=== PATIENT | male | born 1995 | race Caucasian/White ===

== ENCOUNTER 2021-04-27 13:52 | Observation (INO) ==
[2021-04-27 14:54] LABS: ABS Lymphocytes 1.5 10^3/ul (1.0-4.8); ABS Monocytes 0.5 10^3/ul (0-0.8); ABS Neutrophils 4.7 10^3/ul (1.5-7.7); Eosinophil % 0.6 %; Hematocrit 44 % (42-52); Hemoglobin 15.2 g/dL (14.0-18.0); Lymphocyte % 22.8 %; Mean Corpuscular HGB Conc 35 g/dL (31-36); Mean Corpuscular Hemoglobin 32 pg (27-31); Mean Corpuscular Volume 91 fL (80-94); Mean Platelet Volume 9.9 fL (7.4-10.4); Platelet Count 184 10^3/uL (150-450); Red Blood Count 4.81 10^6 /uL (4.18-5.48); Red Cell Distribution Width 13 % (10-15); White Blood Count 6.8 10^3/uL (3.5-10.8)
[2021-04-27 15:17] LABS: Albumin/Globulin Ratio 2.2 (1-3); C Reactive Protein 3.51 mg/L (<8.01); Calcium 9.9 mg/dL (8.6-10.3); EGFR African American 98.7 (>60); EGFR Non-African American 81.6 (>60); Globulin 2.3 g/dL (2-4); Potassium 3.8 mmol/L (3.5-5.0); Total Bilirubin 2.8 mg/dL (0.2-1.0); Total Protein 7.3 g/dL (6.4-8.9)
[2021-04-27] MEDS ORDERED: Iohexol 300 (CONTRAST) 10 ML SDV IV ONE (15:22)
[2021-04-27] MEDS ORDERED: Piperacillin/Tazobac ADVAN 3.375 GM in NS 0.9% 100 ml BAG 100 ML IV ONE (16:53)
[2021-04-27] MEDS ORDERED: Midazolam 2 mg/2 ml VIAL 1 mg/ml 2 ml VIAL (2 mg) ONE (17:56)
[2021-04-27] MEDS ORDERED: Ondansetron 4 mg VIAL 2 MG/ML 2 ml VIAL ONE (17:56)
[2021-04-27] MEDS ORDERED: Succinylcholine 200 mg VIAL 20 mg/ml 10 ml VIAL (200 mg) ONE (17:56)
[2021-04-27] MEDS ORDERED: Dexamethasone IV 4 MG/ML VIAL 1 ml VIAL ONE (17:56)
[2021-04-27] MEDS ORDERED: Lidocaine 2% PF 5 ML VIAL ONE (17:56)
[2021-04-27] MEDS ORDERED: Rocuronium 50 mg VIAL 10 mg/ml 5 ml VIAL (50 mg) ONE (17:56)
[2021-04-27] MEDS ORDERED: Propofol 10 MG/ML 20 ML BTL ONE (17:56)
[2021-04-27] MEDS ORDERED: fentaNYL 250 mcg/5 ml 50 MCG/ML 5 ml VIAL (250 MCG) ONE (17:57)
[2021-04-27] MEDS ORDERED: Lidocaine 1% w EPI 1:200,000 SDV 30 ML VIAL ONE (18:07)
[2021-04-27] MEDS ORDERED: Bupivacaine 0.25% SDV 30 ML ONE (18:08)
[2021-04-27 18:09] LABS: Rapid COVID-19 Molecular Undetected (Undetected)
[2021-04-27 18:38] LABS: Direct Bilirubin 0.3 mg/dL (0.03-0.18); Indirect Bilirubin 2.5 mg/dL (0.3-1.0)
[2021-04-27] MEDS: D5W 1/2 NS KCl 20 meq 1000 ml 1,000 ML IV SCH (20:14)
[2021-04-27] MEDS: Piperacillin/Tazobactam VIAL 3.375 GM in NS 0.9% 100 ml BAG 100 ML IVPB SCH (22:51)
[2021-04-28] MEDS: Piperacillin/Tazobactam VIAL 3.375 GM in NS 0.9% 100 ml BAG 100 ML IVPB SCH ×2 (04:59→16:46)
[2021-04-28] MEDS: D5W 1/2 NS KCl 20 meq 1000 ml 1,000 ML IV SCH (05:02)
[2021-04-28 05:44] LABS: ABS Eosinophils 0.1 10^3/ul (0-0.6); ABS Monocytes 0.5 10^3/ul (0-0.8); ABS Neutrophils 2.8 10^3/ul (1.5-7.7); Eosinophil % 1.3 %; Hematocrit 40 % (42-52); Lymphocyte % 37.1 %; Mean Corpuscular HGB Conc 35 g/dL (31-36); Mean Corpuscular Hemoglobin 32 pg (27-31); Mean Corpuscular Volume 90 fL (80-94); Mean Platelet Volume 9.8 fL (7.4-10.4); Nucleated Red Blood Cells % 0.1; Platelet Count 161 10^3/uL (150-450); Red Blood Count 4.43 10^6 /uL (4.18-5.48); Red Cell Distribution Width 13 % (10-15); White Blood Count 5.4 10^3/uL (3.5-10.8)
[2021-04-28] MEDS ORDERED: Lidocaine 1% w EPI 1:200,000 SDV 30 ML VIAL ONE (11:40)
[2021-04-28] MEDS ORDERED: Bupivacaine 0.5% SDV PF 30ML VIAL ONE (11:41)
[2021-04-28] MEDS ORDERED: Lidocaine 2% PF 5 ML VIAL ONE (12:00)
[2021-04-28] MEDS ORDERED: Propofol 10 MG/ML 20 ML BTL ONE (12:00)
[2021-04-28] MEDS ORDERED: Dexamethasone IV 4 MG/ML VIAL 1 ml VIAL ONE (12:00)
[2021-04-28] MEDS ORDERED: Rocuronium 50 mg VIAL 10 mg/ml 5 ml VIAL (50 mg) ONE (12:00)
[2021-04-28] MEDS: HYDROmorphone 1 MG/1 ML SYRINGE IV PRN ×5 (13:20→13:37)
[2021-04-28] MEDS ORDERED: Ondansetron 4 mg VIAL 2 MG/ML 2 ml VIAL ONE (13:20)
[2021-04-28] MEDS ORDERED: Ondansetron 4 mg VIAL 2 MG/ML 2 ml VIAL IV PRN (13:21)
[2021-04-28] MEDS ORDERED: Naloxone 0.4 mg VIAL 0.4 mg/ml 1 ml VIAL IV PRN (13:21)
[2021-04-28] MEDS ORDERED: HYDROmorphone 1 MG/1 ML SYRINGE ONE (13:22)
[2021-04-28] MEDS ORDERED: Haloperidol 5 mg/ml SDV IV/IM 5 MG/ML AMP IV SLOW PU PRN (13:26)
[2021-04-28] MEDS ORDERED: fentaNYL 100 mcg/2 ml 50 MCG/ML VIAL ONE ×2 (13:44→13:55)
[2021-04-28] MEDS ORDERED: fentaNYL 100 mcg/2 ml 50 MCG/ML VIAL IV SLOW PU PRN (14:06)
[2021-04-28] MEDS ORDERED: Acetaminophen IV 1 GM/100ML 100 ML IV ONE (14:06)
[2021-04-28] MEDS ORDERED: HYDROmorphone 0.5 MG/0.5 ML SYRINGE IV SLOW PU PRN (16:23)
[2021-04-28 17:10] VITALS: BP 113/71
== END 2021-04-28 14:00 | disposition home or self-care (01) ==
LOC: ED 13:52 → SSU 13:52
PROVIDERS: ADMIT Surgery; ATTEND Surgery